=== PATIENT | male | born 1950 | race Caucasian/White ===

== ENCOUNTER → 2017-08-05 10:26 | Outpatient (CLI) | payer OTHER, SELFPAY ==
--- NOTE | 2017-08-05 | DI.CT.S_ITS ---
PROCEDURE: CT ABDOMEN PELVIS W CON INDICATIONS: Left lower quadrant abdominal and groin pain for 1 year TECHNIQUE: After the administration of intravenous contrast, 5 mm thick sections acquired from the diaphragm to the symphysis. 5 mm coronal and sagittal reformats were acquired. For radiation dose reduction, the following was used: automated exposure control, adjustment of mA and/or kV according to patient size. COMPARISON: None. FINDINGS: Image quality: Excellent. ABDOMEN: Lung bases: Lung bases are clear. Heart size is normal. Solid organs: Liver is normal in size and enhancement. In a lobulated, centrally hypodense, peripherally enhancing lesion is present within hepatic segment VIII (series 2, images 13-16). A there is likely a transient hepatic attenuation difference within hepatic segment VII and IV. Gallbladder is mildly contracted. Biliary system is non dilated. Pancreas enhances normally. Spleen is normal in size and enhancement. No adrenal nodules. Kidneys demonstrate normal size and enhancement, without hydronephrosis. Peritoneum and bowel: The stomach and small bowel demonstrate normal wall thickness and caliber. The appendix is not visualized; however surgical clips are present in the region of the cecum in the lower quadrant suggesting prior appendectomy. There is a questionable mass at the ileocecal bowel versus stool (series 2, image 55). The transverse, descending, and sigmoid colon are decompressed. Nodes and vessels: No retroperitoneal or mesenteric adenopathy by size criteria. Aorta and inferior vena cava are normal in size. There are scattered atheromatous calcifications throughout the aorta and iliac arteries bilaterally. Miscellaneous: No ventral hernias. PELVIS: Genitourinary: Bladder wall thickness is normal. Miscellaneous: No inguinal hernias or adenopathy. Bones: No suspicious bony lesions. No vertebral body compression fractures. IMPRESSION: 1. Questionable mass within the cecum versus stool. Given the lack of definite enhancement, stool is favored. However, short interval repeat study or colonoscopy is recommended to further characterize findings and exclude neoplasm. 2. Ill-defined centrally hypodense, peripherally enhancing lesion within the liver which may represent a hepatic hemangioma but is incompletely characterized. Consider right upper quadrant ultrasound or multiphase hepatic protocol CT to further characterize this finding. 3. No discrete findings within the left lower quadrant to explain patient's pain. Dictated by: Anita Clark M.D. on 08/05/2017 at 12:36 Approved by: Anita Clark M.D. on 08/05/2017 at 12:44
== END ==
PROVIDERS: Visit Provider Family Medicine
DX: R10.32 Left lower quadrant pain (principal); K76.9 Liver disease, unspecified
CPT/HCPCS: 74177; Q9967

== ENCOUNTER → 2017-08-20 10:41 | Outpatient (CLI) | payer OTHER, SELFPAY ==
--- NOTE | 2017-08-20 | DI.CT.S_ITS ---
PROCEDURE: CT ABDOMEN WO/W CON INDICATIONS: LIVER MASS, compare to prior TECHNIQUE: 4 phase scanning was performed. Non-contrast 5 mm axial sections acquired from the diaphragm to the iliac crests. Following the administration of intravenous contrast, 5 mm thick arterial-phase, portal venous-phase, and 5-minute delayed phase images were acquired through the liver. 5 mm thick coronal and sagittal reformats were performed. For radiation dose reduction, the following was used: automated exposure control, adjustment of mA and/or kV according to patient size. COMPARISON: [facility], CT, CT ABDOMEN PELVIS W CON, 08/05/2017, 11:24. FINDINGS: Image quality: Excellent. Lung bases: Lung bases are clear. Heart size is normal. Liver: Previously identified lesion in the medial dome of liver measures 1.5 x 2.2 cm with attenuation 43 on pre-contrast imaging. There is minimal early enhancement on the arterial phase with significant enhancement on venous phase, attenuation 65. Both arterial and venous phases show heterogeneous peripheral vascularity or puddling. Delayed imaging shows nearly complete enhancement with attenuation 83. These characteristics are consistent with a cavernous hemangioma. No additional liver lesions are identified. Other solid organs: Gallbladder appears normal. Biliary system is non dilated. Pancreas is normal in morphology. Spleen is normal in size and enhancement. No adrenal nodules. Both kidneys demonstrate normal size and enhancement, without hydronephrosis or nephrolithiasis. Nodes and vessels: No retroperitoneal or mesenteric adenopathy by size criteria. Aorta and inferior vena cava are normal in size. Bowel and peritoneum: Unenhanced bowel loops show mild dilatation and wall thickening in the proximal jejunum, nonspecific. The area of concern at the level of the cecum on last exam is not included in this study. No free fluid or air. Bones: No suspicious bony lesions. No vertebral body compression fractures. Miscellaneous: No ventral hernias. IMPRESSION: 1. 2 cm mass in the dome of liver is consistent with a benign cavernous hemangioma. This could be monitored by focused abdominal ultrasound as clinically indicated. Dictated by: Rakesh Castillo M.D. on 08/20/2017 at 12:36 Approved by: Rakesh Castillo M.D. on 08/20/2017 at 12:50
[2017-08-20 11:16] LABS: Alanine Aminotransferase 36 IU/L (21-72); Albumin 4.6 g/dL (3.5-5.0); Albumin Globulin Ratio 1.6 (1.0-2.8); Alkaline Phosphatase 98 U/L (38-126); Aspartate Aminotransferase 22 IU/L (17-59); Bilirubin Total 2.2 mg/dL (0.2-1.3); Blood Urea Nitrogen 26 mg/dL (9-20); Calcium 9.6 mg/dL (8.4-10.2); Carbon Dioxide 23 mmol/L (22-32); Chloride 104 mmol/L (98-107); Estimated Glomerular Filt Rate > 60.0 mL/min (>60); Globulin 2.8 g/dL (1.7-4.1); Glucose 105 mg/dL (80-110); HEMOLYSIS < 15 (0-50); Potassium 4.2 mmol/L (3.4-5.1); Sodium 137 mmol/L (137-145); Total Protein 7.4 g/dL (6.3-8.2)
== END ==
PROVIDERS: Visit Provider Family Medicine
DX: R16.0 Hepatomegaly, not elsewhere classified (principal); D18.09 Hemangioma of other sites
CPT/HCPCS: 36415; 74170; 80053; Q9967

== ENCOUNTER → 2017-09-25 10:35 | Outpatient (CLI) | payer OTHER, SELFPAY ==
--- NOTE | 2017-09-25 | DI.CT.S_ITS ---
PROCEDURE: CT ABDOMEN PELVIS WO/W CON INDICATIONS: LEFT LOWER QUADRANT PAIN TECHNIQUE: After the administration of oral contrast, 5 mm thick sections acquired from the diaphragms to the iliac crests. After the administration of intravenous contrast, 5 mm thick sections acquired from the diaphragms to the symphysis. 5 mm thick coronal and sagittal reformats were acquired. For radiation dose reduction, the following was used: automated exposure control, adjustment of mA and/or kV according to patient size. COMPARISON: [facility], CT, CT ABDOMEN WO/W CON, 08/20/2017, 11:21. [facility], CT, CT ABDOMEN PELVIS W CON, 08/05/2017, 11:24. FINDINGS: Image quality: Excellent. ABDOMEN: Lung bases: Lung bases are clear. Heart size is normal. Solid organs: Previously identified lesion in the anterior medial right hepatic lobe on series 3 axial image 39 currently measures 2.1 x 1.6 cm transaxial (previously 2.2 x 1.5 cm transaxial on 08/20/17); this lesion demonstrates peripheral contrast enhancement with central hypoattenuation. Gallbladder is unremarkable. Biliary system is non-dilated. Pancreas enhances normally. Spleen is normal in size and enhancement. No adrenal nodules. Both kidneys are normal in size. Punctate nonobstructing left nephrolith with no evidence of hydronephrosis bilaterally. Bowel and peritoneum: There is minimal colonic wall thickening of the left descending colon and sigmoid colon. No free fluid or air. Nodes and vessels: No retroperitoneal or mesenteric adenopathy by size criteria. Aorta and inferior vena are normal in caliber. There is mild calcific plaque of the abdominal aorta and branch vessels. Miscellaneous: No ventral hernias. PELVIS: Genitourinary: Bladder wall thickness is normal. Miscellaneous: Right lower quadrant anterior abdominal subcutaneous scarring. Bones: No suspicious bony lesions. No vertebral body compression fractures. IMPRESSION: #1. Minimal left descending and sigmoid colonic wall thickening, which may represent a low-grade colitis in the appropriate clinical setting. #2. Punctate nonobstructing left nephrolithiasis. #3. 2.1 cm right hepatic lesion is not significantly changed from comparison exam of 08/20/17, and likely represents an intrahepatic hemangioma. Followup imaging can be considered if there is continued clinical concern. Dictated by: Mookie Moreno M.D. on 09/25/2017 at 12:19 Approved by: Mookie Moreno M.D. on 09/25/2017 at 12:39
[2017-09-25 11:06] LABS: Alanine Aminotransferase 73 IU/L (21-72); Albumin 4.5 g/dL (3.5-5.0); Albumin Globulin Ratio 1.6 (1.0-2.8); Alkaline Phosphatase 93 U/L (38-126); Aspartate Aminotransferase 44 IU/L (17-59); Bilirubin Total 1.2 mg/dL (0.2-1.3); Blood Urea Nitrogen 32 mg/dL (9-20); Calcium 9.7 mg/dL (8.4-10.2); Carbon Dioxide 30 mmol/L (22-32); Chloride 103 mmol/L (98-107); Estimated Glomerular Filt Rate > 60.0 mL/min (>60); Globulin 2.8 g/dL (1.7-4.1); Glucose 94 mg/dL (80-110); HEMOLYSIS < 15 (0-50); Potassium 4.4 mmol/L (3.4-5.1); Sodium 141 mmol/L (137-145); Total Protein 7.3 g/dL (6.3-8.2)
== END ==
PROVIDERS: Visit Provider Family Medicine
DX: R10.32 Left lower quadrant pain (principal); N20.0 Calculus of kidney; K76.9 Liver disease, unspecified
CPT/HCPCS: 36415; 74178; 80053; Q9967

== ENCOUNTER 2017-10-01 12:55 | Day surgery (SDC) | payer OTHER, SELFPAY ==
[2017-09-30 12:41] VITALS: BMI 21.9
[2017-10-01] VITALS (9 sets, daily range): BP systolic 93–121; BP diastolic 56–75; PULSE 78–96; RESP 12–16; TEMP 36.2–36.7; O2SAT 93–99; BMI 21.9
[2017-10-01] MEDS: LACTATED RINGERS 1,000 ML 42 ML IV ×2 (13:30→16:56)
--- NOTE | 2017-10-01 15:51 | PM.PREOP ---
Pre-operative Note Interval Note Pre-op Check: Yes History & Physical Reviewed by Physician and Yes Exam Performed Changes: No
[2017-10-01] MEDS: CLINDAMYCIN 900 MG/50 ML PIGGYBACK 50 MG IV (16:03)
--- NOTE | 2017-10-01 16:26 | SUR.OPER ---
Supine on padded OR bed, head on pillow, arms secured on padded arm boards at <90 degrees abduction, legs uncrossed, safety belt at thigh, tape over blanket over lower legs.
[2017-10-01] MEDS: LIDOCAINE 1% W/EPI INJ 20 ML INJ (16:38)
[2017-10-01] MEDS: BUPIVACAINE 0.5% (PF) VIAL 30 ML INJ (17:06)
--- NOTE | 2017-10-01 17:16 | PM.OP.1 ---
Operative Date/Time/Diagnoses Date of procedure: 10/01/17 Time of procedure: 17:16 Pre-op diagnosis: Left inguinal hernia reducible without evidence of strangulation or incarceration Post-op diagnosis: same ( indirect and direct components) Procedure & Clinicians Procedure: repair with plug and patch technique Same procedure as scheduled: Yes Indications: symptomatic left inguinal hernia Surgeon: Sergo Elam Click Yes if Unassisted: Yes Anesthesia Type: General Operative Notes Findings: direct and indirect hernia Closure Type: primary Specimen(s): none sent Implants & Drains: mesh Estimated Blood Loss (mL): 5 Blood products transfused: none Procedure in detail: the patient is placed supine on the operating room table and underwent general LMA anesthesia. He was prepped and draped in the usual fashion. Local anesthetic was infiltrated and a transverse incision made overlying his internal ring. It was carried down level of the external oblique. The external oblique was opened parallel with its fibers through the external ring. Cremaster was opened proximally in an indirect sac was identified from surrounding structures. It was opened and found to contain a small amount of fat attached to intestine. I reduced this and close the defect with an interrupted 2 0 silk suture. The stump was allowed to retract and a medium plug was placed in the defect and tacked into place with interrupted 0 Tycron sutures. The cremaster was then closed with an interrupted 3 0 Polysorb and a patch placed across the floor. It was tacked at the pubic tubercle, the posterior lamella the anterior rectus sheath the ileo angle ligaments. Lateral the cord. The opening for the cord structures was enlarged to prevent constriction around the cord. The external oblique was closed with a running 3 0 Polysorb. Subcu was closed with interrupted 3 0 Polysorb and skin was closed running for 0 Polysorb subcuticular stitch and Steri-Strips. Dressing was applied the pull testicle was pulled down and the patient was awakened and taken the recovery room good condition. Complications: none Condition: stable Disposition: PACU Plan for aftercare: Follow-up in the office
[2017-10-01] MEDS: OXYCODONE/ACETAMINOPHEN 5/325 TABLET 1 TAB PO (17:51)
--- NOTE | 2017-10-01 18:13 | SUR.PHASEII ---
stable pacu stay, pt awoke, airway out. tolerated applesauce, medicated with percocet, brought in, d/c instructions discussed, all voiced an understanding. obtained pain meds from pharmacy. able to be discharged, but wants to stay till [place]. dressing has remained c/d/i. ice on and off.
--- NOTE | 2017-10-01 19:58 | SUR.PHASEII ---
late entry: ready to go, pt dressed with assist of . steady when up wheeled out by dennis [place]. pt left in stable condition.
== END 2017-10-01 18:30 | disposition home or self-care (01) ==
PROVIDERS: Visit Provider Specialist
PROC: (CPT 49505; principal; 2017-10-01 14:15)
DX: K40.90 Unilateral inguinal hernia, without obstruction or gangrene, not specified as recurrent (principal)
CPT/HCPCS: 49505; C1781; J1100; J2250; J2405; J2704; J3010

== ENCOUNTER → 2019-04-29 10:21 | Outpatient (CLI) | payer OTHER, SELFPAY ==
--- NOTE | 2019-04-29 10:30 | DI.CT.S_ITS ---
PROCEDURE: CT CHEST WO CON INDICATIONS: CHRONIC COUGH TECHNIQUE: Noncontrast 5 mm thick sections acquired from the pulmonary apices to the posterior costophrenic angles. 1 mm lung window, 5 mm thick coronal and sagittal and 7 mm axial MIP reformats were then acquired. For radiation dose reduction, the following was used: automated exposure control, adjustment of mA and/or kV according to patient size. COMPARISON: None. FINDINGS: Image quality: Excellent. Lungs and pleura: No acute air space opacities. Mild biapical scarring. 4 mm ill-defined nodular density with slightly spiculated margin is seen in anterolateral aspect of left lingula segment and just anterior to the oblique fissure series 3 image 209. Dependent atelectasis/scarring in periphery of bilateral lower lung yates are seen. No pleural effusions or pneumothorax. Central and peripheral airways are patent and normal in caliber. Mediastinum: Heart size is normal. No pericardial effusion. No mediastinal adenopathy by size criteria. Thoracic aorta and central pulmonary arteries are normal in size. Esophagus is normal in caliber. There is a small hiatal hernia. Bones and chest wall: No suspicious bony lesions. No vertebral body compression fractures. No axillary or supraclavicular adenopathy by size criteria. Thyroid gland is within normal limits. Abdomen: Visualized upper abdominal solid organs and bowel loops appear normal in the absence of contrast. IMPRESSION: 1. Ill-defined 4 mm nodular density with mildly spiculated margin in left lingula segment and near left lung base. Additional ill-defined area of scarring/atelectasis scattered in bilateral lung bases. Consider followup chest CT study in 12 months for evaluation of resolution or stability. 2. Airway is patent. No pleural effusion or pneumothorax. 3. No mediastinal or hilar lymphadenopathy. Dictated by: Desmond Thornton M.D. on 04/29/2019 at 10:47 Approved by: Desmond Thornton M.D. on 04/29/2019 at 11:11
== END ==
PROVIDERS: PCP Family Medicine; Referring Provider Family Medicine; Visit Provider Family Medicine
DX: R05 Cough (principal); R91.1 Solitary pulmonary nodule; K44.9 Diaphragmatic hernia without obstruction or gangrene
CPT/HCPCS: 71250

== ENCOUNTER 2019-07-21 18:16 | Observation (INO) | payer OTHER, SELFPAY ==
[2019-07-21 18:15] VITALS: BP 158/92; PULSE 85; RESP 14; TEMP 36.7; O2SAT 99
--- NOTE | 2019-07-21 18:22 | ED.ABDPAIN ---
HPI - Abdominal Pain General Chief Complaint: Urogenital-Male Stated Complaint: Renal colic Time Seen by Provider: 07/21/19 18:21 History of Present Illness HPI narrative: 68-year-old gentleman with acute onset of left-sided flank pain at 2:30 a.m. this afternoon he denies any fever or chills. He has chronic intermittent diarrhea that has not been worse recently. He does report some minor irritation with urinating but no outright dysuria, hematuria or urinary retention. He states the pain is severe is difficult to find a position in which he can find any sort of comfort. Denies chest pain, shortness of breath or actual abdominal pain. Related Data Home Medications Medication Instructions Recorded Confirmed No Known Home Medications 09/30/17 11/18/18 Allergies Allergy/AdvReac Type Severity Reaction Status Date / Time ibuprofen [IBUPROFEN] Allergy Unknown Verified 07/21/19 18:20 Penicillins [PENICILLINS] Allergy Unknown rash Verified 07/21/19 18:20 Review of Systems Review of Systems Narrative: Pertinent positive and negative findings as per HPI Remainder of review of systems is otherwise unremarkable for Constitutional: Fevers, chills, weakness ENT: No sore throat, neck pain, ear pain CV: Chest pain, palpitations, dyspnea on exertion Respiratory: Cough, wheeze, dyspnea MS: Muscle weakness, numbness, joint swelling or warmth Skin: Rashes, nonhealing lesions Neuro: Syncope, dizziness, tingling Patient History Medical History Gilbert's disease (Chronic) History of Clostridium difficile colitis (Resolved) History of interstitial nephritis (Resolved) Surgical History H/O external ear surgery (Resolved) History of appendectomy (Resolved) History of left inguinal hernia repair (Acute) History of right inguinal hernia repair (Resolved) Family History Father Cancer Grandfather Cancer Social History marital status: household members: spouse Smoking Status: Former smoker alcohol intake: current substance use type: does not use Smoking Status: Never smoker Substance Use Type: does not use Exam Narrative Exam Narrative: General: Healthy appearing, in moderate amount of pain. Able to give a complete and coherent history. Well-nourished well-developed HEENT: Dry mucous membranes, normal sclera with reactive pupils, Neck: No JVD, supple Respiratory: Lungs are clear to auscultation, no wheezing no rales no rhonchi. Full and symmetrical air movement Cardiac: Regular rate and rhythm no murmurs no bruits Abdomen: Soft nontender good bowel tones, left flank pain Skin: Warm and dry, no rashes Neurologic: Grossly neurologically intact with no obvious asymmetries or abnormalities Extremities: No trauma, well perfused Psych: Cooperative, appropriate insight and affect Initial Vital Signs Initial Vital Signs: Vital Signs Temperature 98.1 F 07/21/19 18:15 Pulse Rate 85 07/21/19 18:15 Respiratory Rate 14 07/21/19 18:15 Blood Pressure 158/92 H 07/21/19 18:15 Pulse Oximetry 99 07/21/19 18:15 Course Orders Ordered: ED Orders 07/21/19 18:24 CT kidney ureter bladder (KUB) Stat 07/21/19 18:35 Complete Blood Count AUTO DIFF Stat Comprehensive Metabolic Panel Stat Lipase Stat Troponin I Stat 07/21/19 20:33 Lactate (Lactic Acid) Stat 07/21/19 20:43 Blood Culture Stat 07/21/19 21:00 Urinalysis and Microscopic Stat 07/21/19 21:35 Education, smoking cessation ONGOING 07/21/19 21:40 Education, smoking cessation ONGOING 07/22/19 05:00 Basic Metabolic Panel Routine Complete Blood Count AUTO DIFF Routine Hydromorphone HCl (Dilaudid) 0.5 mg IV Q3HR PRN PRN Reason: Pain, Moderate (4-6) Last Admin: 07/22/19 00:43 Dose: 0.5 mg Documented by: JACINTO Sodium Chloride (Normal Saline 0.9%) 1,000 mls @ 150 mls/hr IV CONT JUANITA Last Infusion: 07/21/19 22:18 Dose: 150 mls/hr Documented by: Admin: 07/21/19 20:52 Dose: 150 mls/hr Documented by: W[place] Dextrose/Sodium Chloride (Dextrose 5%-0.9% Ns) 1,000 mls @ 100 mls/hr IV CONT JUANITA Last Admin: 07/21/19 23:50 Dose: 100 mls/hr Documented by: JACINTO Ceftriaxone Sodium/Dextrose (Rocephin) 1 gm in 50 mls @ 100 mls/hr IV Q24H [facility] Last Infusion: 07/22/19 00:20 Dose: 100 mls/hr Documented by: Admin: 07/21/19 23:50 Dose: 100 mls/hr Documented by: JACINTO Naloxone HCl (Narcan) 0.2 mg IV Q2MIN PRN PRN Reason: Opiate Reversal Naloxone HCl (Narcan) 0.2 mg IV Q2MIN PRN PRN Reason: Opiate Reversal Sodium Chloride (Normal Saline 0.9% Flush) 10 ml IV PRN PRN PRN Reason: Flush Discontinued Medications Sodium Chloride (Normal Saline 0.9%) 1,000 mls @ 1,000 mls/hr IV BOLUS ONE Stop: 07/21/19 19:55 Last Infusion: 07/21/19 20:37 Dose: 0 mls/hr Documented by: Admin: 07/21/19 19:33 Dose: 1,000 mls/hr Documented by: [place] Ceftriaxone Sodium/Dextrose (Rocephin) 2 gm in 50 mls @ 100 mls/hr IV NOW ONE Stop: 07/21/19 20:44 Last Infusion: 07/21/19 21:40 Dose: 0 mls/hr Documented by: Admin: 07/21/19 20:52 Dose: 100 mls/hr Documented by: [place] Ketorolac Tromethamine (Toradol) 15 mg IV NOW ONE Stop: 07/21/19 18:57 Last Admin: 07/21/19 19:32 Dose: 15 mg Documented by: W[place] Ketorolac Tromethamine (Toradol) 15 mg IV Q6HR PRN PRN Reason: Pain, Moderate (4-6) Stop: 07/23/19 21:40 Tamsulosin HCl (Flomax) 0.4 mg PO NOW ONE Stop: 07/21/19 20:26 Last Admin: 07/21/19 20:51 Dose: 0.4 mg Documented by: W[place] Vital Signs Vital signs: Vital Signs - 8 hr 07/21/19 18:15 07/21/19 18:46 Temperature 98.1 F Pulse Rate 85 64 Respiratory Rate 14 12 Blood Pressure 158/92 H Pulse Oximetry 99 86 L MDM - Abdominal Pain Medical Records Attestation: I reviewed the patient's medical records. Lab Data Attestation: I reviewed the patient's lab results. Lab results narrative: Creatinine increased to 1.29, leukocytosis with left shift Result diagrams: 07/21/19 18:35 07/21/19 18:35 Labs: Lab Results 07/21/19 07/21/19 07/21/19 Range/Units 18:35 18:35 20:33 WBC 12.4 H (4.5-11.0) X10^3/uL RBC 4.85 (4.5-5.9) X10^6/uL Hgb 15.2 (13.5-17.5) g/dL Hct 44.9 (41-53) % MCV 92.6 (80-100) fL MCH 31.4 (26-34) PG MCHC 33.9 (30-36) % RDW 13.5 (11.6-14.8) % Plt Count 170 (150-400) X10^3/uL Neut % (Auto) 90.9 H (50-75) % Lymph % (Auto) 6.4 L (25-40) % [place] % (Auto) 2.5 L (3-14) % Eos % (Auto) 0.0 L (2-4) % Baso % (Auto) 0.2 (0-2) % Neut # (Auto) 14282 H (0150-9566) /uL Lymph # (Auto) 800 L (4948-6245) /uL [place] # (Auto) 300 (0-900) /uL Eos # (Auto) 0 (0-450) /uL Baso # (Auto) 0 (0-100) /uL Sodium 136 L (137-145) mmol/L Potassium 4.2 (3.4-5.1) mmol/L Chloride 105 (98-107) mmol/L Carbon Dioxide 27 (22-32) mmol/L BUN 28 H (9-20) mg/dL Creatinine 1.29 H (0.66-1.25) mg/dL Estimated GFR 55.7 L (>60) mL/min BUN/Creatinine Ratio 21.7 (6-22) Glucose 142 H (80-110) mg/dL Lactate 1.2 (0.7-2.1) mmol/L Calcium 9.4 (8.4-10.2) mg/dL Total Bilirubin 1.1 (0.2-1.3) mg/dL AST 32 (17-59) IU/L ALT 52 H (<50) IU/L Alkaline Phosphatase 99 (38-126) U/L Troponin I < 0.012 (0.01-0.034) ng/mL Total Protein 7.2 (6.3-8.2) g/dL Albumin 4.2 (3.5-5.0) g/dL Globulin 3.0 (1.7-4.1) g/dL Albumin/Globulin Ratio 1.4 (1.0-2.8) Lipase 52 (23-300) U/L Urine Color Urine Appearance Urine pH (4.5-8.0) Ur Specific [place] (1.000-1.035) Urine Protein (Negative) Urine Glucose (UA) (Negative) g/dL Urine Ketones (NEGATIVE) Urine Occult Blood (Negative) Urine Nitrate (Negative) Urine Bilirubin (NEGATIVE) Urine Urobilinogen (0.2) E.U./dL Ur Leukocyte Esterase (NEGATIVE) Urine RBC (0-5/HPF) Urine WBC (0-5/HPF) Ur Squamous Epith Cells (0-5/HPF) Urine Bacteria (None) Ur Culture Indicated? COVID-19 PCR (Negative) 07/21/19 07/21/19 Range/Units 21:00 21:00 WBC (4.5-11.0) X10^3/uL RBC (4.5-5.9) X10^6/uL Hgb (13.5-17.5) g/dL Hct (41-53) % MCV (80-100) fL MCH (26-34) PG MCHC (30-36) % RDW (11.6-14.8) % Plt Count (150-400) X10^3/uL Neut % (Auto) (50-75) % Lymph % (Auto) (25-40) % [place] % (Auto) (3-14) % Eos % (Auto) (2-4) % Baso % (Auto) (0-2) % Neut # (Auto) (7942-2504) /uL Lymph # (Auto) (7932-5198) /uL [place] # (Auto) (0-900) /uL Eos # (Auto) (0-450) /uL Baso # (Auto) (0-100) /uL Sodium (137-145) mmol/L Potassium (3.4-5.1) mmol/L Chloride (98-107) mmol/L Carbon Dioxide (22-32) mmol/L BUN (9-20) mg/dL Creatinine (0.66-1.25) mg/dL Estimated GFR (>60) mL/min BUN/Creatinine Ratio (6-22) Glucose (80-110) mg/dL Lactate (0.7-2.1) mmol/L Calcium (8.4-10.2) mg/dL Total Bilirubin (0.2-1.3) mg/dL AST (17-59) IU/L ALT (<50) IU/L Alkaline Phosphatase (38-126) U/L Troponin I (0.01-0.034) ng/mL Total Protein (6.3-8.2) g/dL Albumin (3.5-5.0) g/dL Globulin (1.7-4.1) g/dL Albumin/Globulin Ratio (1.0-2.8) Lipase (23-300) U/L Urine Color Yellow Urine Appearance Clear Urine pH 5.0 (4.5-8.0) Ur Specific [place] 1.025 (1.000-1.035) Urine Protein Negative (Negative) Urine Glucose (UA) Negative (Negative) g/dL Urine Ketones 1+ H (NEGATIVE) Urine Occult Blood 3+ H (Negative) Urine Nitrate Negative (Negative) Urine Bilirubin Negative (NEGATIVE) Urine Urobilinogen 0.2 (0.2) E.U./dL Ur Leukocyte Esterase Negative (NEGATIVE) Urine RBC 1-5/hpf (0-5/HPF) Urine WBC 0-1/hpf (0-5/HPF) Ur Squamous Epith Cells 0-1 /hpf (0-5/HPF) Urine Bacteria None seen (None) Ur Culture Indicated? Cult not indicated COVID-19 PCR Negative (Negative) Imaging Data CT scan - abdomen/pelvis: Radiologist's Impression: IMPRESSION: 1. A 4 mm stone obstructs the distal left ureter just above the ureterovesical junction. There is mild to moderate left hydronephrosis and probable calyceal rupture with perinephric stranding and fluid. Dictated by: Carlos Trotter M.D. on 07/21/2019 at 19:02 MDM Narrative Medical decision making narrative: 68-year-old gentleman with a 4 mm distal left ureteral stone. Concern for caliceal rupture and leukocytosis with left shift. He lives on [facility] and returning home is going to be an issue this evening. Pain control continues to be a significant issue. 833pm Dr Buchanan, urology. Agrees with hospital admission. Will need to go to the OR for ureteral stenting tomorrow. Admit to the hospitalist service 9pm Dr Lee, will admit. Care reviewed. Discharge Plan Departure Patient Disposition: Admitted as Observation Clinical Impression: Calculus, ureteral, Acute renal insufficiency Leukocytosis Qualifiers: Leukocytosis type: unspecified Qualified Code(s): D72.829 - Elevated white blood cell count, unspecified Discharge Date/Time: 07/21/19 22:21 Admit Date/Time: 07/21/19 21:53 Admit Provider: Sarah Lee
--- NOTE | 2019-07-21 18:24 | DI.CT.S_ITS ---
PROCEDURE: CT KIDNEY URETER BLADDER (KUB) INDICATIONS: flank pain, ? stone TECHNIQUE: Noncontrast 5 mm thick sections acquired from the diaphragms to the symphysis. 5 mm thick coronal and sagittal reformats were then performed. For radiation dose reduction, the following was used: automated exposure control, adjustment of mA and/or kV according to patient size. COMPARISON: None. FINDINGS: Image quality: Excellent. Lung bases: Lung bases are clear. Heart size is normal. Urinary system: Right kidney: No stone or hydronephrosis or mass Right ureter: Unremarkable Left kidney: Mild to moderate hydronephrosis. Extensive perinephric stranding and fluid suggesting calyceal rupture. No left renal stone. Left ureter: Dilated to just above the level of the ureterovesical junction, where there is a 4 mm obstructing stone. Bladder: No bladder stones. No bladder wall thickening. Other solid organs: Liver is normal in size. Gallbladder is unremarkable. Pancreas is normal in contours. Spleen is normal in size. No adrenal nodules. Peritoneum and bowel: Unenhanced bowel loops demonstrate normal wall thickness and caliber. No free fluid or air. Nodes and vessels: No retroperitoneal or mesenteric adenopathy by size criteria. Aorta and inferior vena cava are normal in caliber. Abdominal wall: No ventral hernias. Pelvis: No free pelvic fluid. No inguinal hernias or adenopathy. Bones: No suspicious bony lesions. No vertebral body compression fractures. IMPRESSION: 1. A 4 mm stone obstructs the distal left ureter just above the ureterovesical junction. There is mild to moderate left hydronephrosis and probable calyceal rupture with perinephric stranding and fluid. Dictated by: Carlos Trotter M.D. on 07/21/2019 at 19:02 Approved by: Carlos Trotter M.D. on 07/21/2019 at 19:06
[2019-07-21 18:44] LABS: Add Manual Diff / Slide Review NO; Basophils Absolute Auto 0 /uL (0-100); Basophils Percent Auto 0.2 % (0-2); Eosinophils Absolute Auto 0 /uL (0-450); Hematocrit 44.9 % (41-53); Hemoglobin 15.2 g/dL (13.5-17.5); Lymphocytes Absolute Auto 800 /uL (1100-4500); Lymphocytes Percent Auto 6.4 % (25-40); Mean Corpuscular HGB Conc 33.9 % (30-36); Mean Corpuscular Hemoglobin 31.4 PG (26-34); Mean Corpuscular Volume 92.6 fL (80-100); Monocytes Absolute Auto 300 /uL (0-900); Monocytes Percent Auto 2.5 % (3-14); Neutrophils Absolute Auto 11300 /uL (1500-7000); Neutrophils Percent Auto 90.9 % (50-75); Platelet Count 170 X10^3/uL (150-400); Red Blood Cell Count 4.85 X10^6/uL (4.5-5.9); Red Cell Distribution Width 13.5 % (11.6-14.8); White Blood Cell Count 12.4 X10^3/uL (4.5-11.0)
[2019-07-21 18:46] VITALS: PULSE 64; RESP 12; O2SAT 86
[2019-07-21 18:54] LABS: Alanine Aminotransferase 52 IU/L (<50); Albumin 4.2 g/dL (3.5-5.0); Albumin Globulin Ratio 1.4 (1.0-2.8); Alkaline Phosphatase 99 U/L (38-126); Aspartate Aminotransferase 32 IU/L (17-59); BUN Creatinine Ratio 21.7 (6-22); Bilirubin Total 1.1 mg/dL (0.2-1.3); Blood Urea Nitrogen 28 mg/dL (9-20); Calcium 9.4 mg/dL (8.4-10.2); Carbon Dioxide 27 mmol/L (22-32); Chloride 105 mmol/L (98-107); Estimated Glomerular Filt Rate 55.7 mL/min (>60); Glucose 142 mg/dL (80-110); HEMOLYSIS 22 (0-50); Lipase 52 U/L (23-300); Potassium 4.2 mmol/L (3.4-5.1); Sodium 136 mmol/L (137-145); Total Protein 7.2 g/dL (6.3-8.2)
[2019-07-21 19:06] LABS: Troponin I < 0.012 ng/mL (0.01-0.034)
[2019-07-21] MEDS: KETOROLAC 60 MG/2 ML VIAL 15 MG IV (19:32)
[2019-07-21] MEDS: SODIUM CHLORIDE 0.9% 1,000 ML 1000 ML IV (19:33)
[2019-07-21] MEDS: TAMSULOSIN 0.4 MG CAPSULE PO (20:51)
[2019-07-21 20:52] LABS: Lactate (Lactic Acid) 1.2 mmol/L (0.7-2.1)
[2019-07-21] MEDS: SODIUM CHLORIDE 0.9% 1,000 ML 150 ML IV (20:52)
[2019-07-21] MEDS: CEFTRIAXONE 2 GM/50 ML FROZ.PIGGY IV (20:52)
[2019-07-21 21:12] LABS: Appearance Urine UA CLEAR; Bacteria Urine None Seen; Bilirubin Urine UA NEGATIVE (NEGATIVE); Color Urine UA YELLOW; Glucose Urine UA NEGATIVE (Negative); Ketones Urine UA 1+ (NEGATIVE); Leukocyte Esterase Urine UA NEGATIVE (NEGATIVE); Nitrite Urine UA NEGATIVE (Negative); Occult Blood Urine UA 3+ (Negative); Protein Urine UA NEGATIVE (Negative); Specific Gravity Urine UA 1.025 (1.000-1.035); Urobilinogen Urine UA 0.2 E.U./dL (0.2)
[2019-07-21 21:24] LABS: Culture Indicated Urine Cult Not Indicated; RBC Urine 1-5/HPF (0-5/HPF); Squamous Epithelial Cell Urine 0-1 /HPF (0-5/HPF); WBC Urine 0-1/HPF (0-5/HPF)
--- NOTE | 2019-07-21 21:42 | PM.HP.1 ---
History of Present Illness History of Present Illness Date Patient Seen: 07/21/19 Time Patient Seen: 21:45 Chief complaint: Renal colic Narrative: This is a 68 year old male with sudden onset 2:30 pm today of left flank pain. A CT scan reveals a 4 mm UVJ stone with calyceal rupture. He has had no prior episodes of kidney stones although about 5 years ago he had 20 minutes of severe left flank pain the resolved spontaneously. He will be observed overnight and will undergo stenting with Urology in the morning. A Urine culture will be done. The Creatinine has risen from a baseline of 1.0 up to 1.39. Patient History Medical History Gilbert's disease (Chronic) History of Clostridium difficile colitis (Resolved) History of interstitial nephritis (Resolved) Surgical History H/O external ear surgery (Resolved) History of appendectomy (Resolved) History of left inguinal hernia repair (Acute) History of right inguinal hernia repair (Resolved) Family & Social History Family History Father Cancer Grandfather Cancer Social History: household members spouse Safety & Behavioral: Feels Safe in Current Yes Environment Been Physically Hurt or No Threatened By a Person Tobacco & Substance use: Smoking Status Never smoker alcohol intake never Substance Use Type does not use Comment: His backup decision maker is his , Flores Harden. He works for a [employer]. Meds Home Medications and Allergies Home Medications Medication Instructions Recorded Confirmed Type No Known Home Medications 09/30/17 11/18/18 History Allergies Allergy/AdvReac Type Severity Reaction Status Date / Time ibuprofen [IBUPROFEN] Allergy Unknown Verified 07/21/19 18:20 Penicillins [PENICILLINS] Allergy Unknown rash Verified 07/21/19 18:20 Review of Systems Review of Systems Narrative: Positive for abdominal pain Negative for fevers, chills, sweats, nausea, vomiting, coughing, chest pain, bleeding, rash, joint pain, seizures, headaches, difficulty talking, difficulty walking, new allergies. ROS: Yes All systems reviewed with the patient and are negative except as otherwise documented Exam Vital Signs (past 8 hours): - 07/21/19 18:15 07/21/19 18:46 Temperature 98.1 F Pulse Rate 85 64 Respiratory Rate 14 12 Blood Pressure 158/92 H Pulse Oximetry 99 86 L Oxygen Delivery Method Room Air Narrative Exam Narrative: Alert and oriented x3, no apparent distress No lymph nodes felt head, neck, supraclavicular area No thyromegaly JVD is less than 6 cm No carotid bruits are heard Throat looks normal Heart is regular rate and rhythm without murmur Lungs are clear to auscultation bilaterally Abdomen is soft, bowel sounds positive, mildly tender in the left lower quadrant only, no organomegaly. Extremities have no ankle edema Skin has no rash or jaundice Neurological exam There is no tremor Cranial nerves 2-12 test intact Motor function is 5/5 throughout Objective Labs Result Diagrams: 07/21/19 18:35 07/21/19 18:35 Labs: Laboratory Results - last 24 hr 07/21/19 07/21/19 07/21/19 18:35 18:35 20:33 WBC 12.4 H RBC 4.85 Hgb 15.2 Hct 44.9 MCV 92.6 MCH 31.4 MCHC 33.9 RDW 13.5 Plt Count 170 Neut % (Auto) 90.9 H Lymph % (Auto) 6.4 L [place] % (Auto) 2.5 L Eos % (Auto) 0.0 L Baso % (Auto) 0.2 Neut # (Auto) 32455 H Lymph # (Auto) 800 L [place] # (Auto) 300 Eos # (Auto) 0 Baso # (Auto) 0 Sodium 136 L Potassium 4.2 Chloride 105 Carbon Dioxide 27 BUN 28 H Creatinine 1.29 H Estimated GFR 55.7 L BUN/Creatinine Ratio 21.7 Glucose 142 H Lactate 1.2 Calcium 9.4 Total Bilirubin 1.1 AST 32 ALT 52 H Alkaline Phosphatase 99 Troponin I < 0.012 Total Protein 7.2 Albumin 4.2 Globulin 3.0 Albumin/Globulin Ratio 1.4 Lipase 52 Urine Color Urine Appearance Urine pH Ur Specific [place] Urine Protein Urine Glucose (UA) Urine Ketones Urine Occult Blood Urine Nitrate Urine Bilirubin Urine Urobilinogen Ur Leukocyte Esterase Urine RBC Urine WBC Ur Squamous Epith Cells Urine Bacteria Ur Culture Indicated? 07/21/19 21:00 WBC RBC Hgb Hct MCV MCH MCHC RDW Plt Count Neut % (Auto) Lymph % (Auto) [place] % (Auto) Eos % (Auto) Baso % (Auto) Neut # (Auto) Lymph # (Auto) [place] # (Auto) Eos # (Auto) Baso # (Auto) Sodium Potassium Chloride Carbon Dioxide BUN Creatinine Estimated GFR BUN/Creatinine Ratio Glucose Lactate Calcium Total Bilirubin AST ALT Alkaline Phosphatase Troponin I Total Protein Albumin Globulin Albumin/Globulin Ratio Lipase Urine Color Yellow Urine Appearance Clear Urine pH 5.0 Ur Specific [place] 1.025 Urine Protein Negative Urine Glucose (UA) Negative Urine Ketones 1+ H Urine Occult Blood 3+ H Urine Nitrate Negative Urine Bilirubin Negative Urine Urobilinogen 0.2 Ur Leukocyte Esterase Negative Urine RBC 1-5/hpf Urine WBC 0-1/hpf Ur Squamous Epith Cells 0-1 /hpf Urine Bacteria None seen Ur Culture Indicated? Cult not indicated Assessment & Plan Assessment & Plan narrative: Left UVJ Stone, present on admission, acute -Calyceal rupture with [address]-KUB -Dr. Downey will consult and place a stent 07/21. -NPO after midnight -IVF and IV Dilaudid prn Acute Kidney Injury -Baseline Creatinine 1.0, up to 1.39 on 07/21 -treat with IVF and repeat 07/22.
[2019-07-21 22:10] VITALS: BMI 24.0
[2019-07-21 22:19] VITALS: BP 126/67; PULSE 80; RESP 17; O2SAT 97
[2019-07-21 22:43] LABS: COVID19 -Nasal RAPID Negative (Negative)
[2019-07-21] MEDS: CEFTRIAXONE 1 GM/50 ML FROZ.PIGGY IV (23:50)
[2019-07-21] MEDS: DEXTROSE 5%-0.9% NS 1,000 ML 100 ML IV (23:50)
[2019-07-22] VITALS (16 sets, daily range): BP systolic 91–116; BP diastolic 55–74; PULSE 59–87; RESP 8–20; TEMP 36.2–37.6; O2SAT 93–100; BMI 24.0
--- NOTE | 2019-07-22 | DI.RAD.S_ITS ---
PROCEDURE: XR ABDOMEN 1V INDICATIONS: LEFT CYSTO TECHNIQUE: One view of the abdomen acquired. COMPARISON: [facility], CT, CT KIDNEY URETER BLADDER (KUB), 07/21/2019, 18:44. FINDINGS: Surgical changes and devices: Left ureteral stent is present which demonstrates a redundant loop proximally. Bowel: Bowel gas pattern is normal. Soft tissues: No suspicious abdominal calcifications. Visualized solid organ contours appear normal in size. Bones: No suspicious bony lesions. IMPRESSION: Intraoperative images obtained during left ureteral stent placement as above. Dictated by: Joseph Rice M.D. on 07/22/2019 at 19:50 Approved by: Joseph Rice M.D. on 07/22/2019 at 19:52
[2019-07-22] MEDS: HYDROMORPHONE 1 MG INJ 0.5 MG IV ×2 (00:43→07:59)
--- NOTE | 2019-07-22 03:51 | PC.NURSE ---
Patient NPO at midnight. Pain 3/10, medicated w/ PRN 0.5 mg of dilaudid IV.
[2019-07-22 05:33] LABS: Add Manual Diff / Slide Review NO; Basophils Absolute Auto 0 /uL (0-100); Basophils Percent Auto 0.2 % (0-2); Eosinophils Absolute Auto 100 /uL (0-450); Eosinophils Percent Auto 0.8 % (2-4); Hematocrit 40.3 % (41-53); Lymphocytes Absolute Auto 1500 /uL (1100-4500); Lymphocytes Percent Auto 20.3 % (25-40); Mean Corpuscular HGB Conc 34.7 % (30-36); Mean Corpuscular Volume 92.3 fL (80-100); Monocytes Absolute Auto 600 /uL (0-900); Neutrophils Absolute Auto 5300 /uL (1500-7000); Neutrophils Percent Auto 70.7 % (50-75); Platelet Count 151 X10^3/uL (150-400); Red Blood Cell Count 4.37 X10^6/uL (4.5-5.9); Red Cell Distribution Width 13.5 % (11.6-14.8); White Blood Cell Count 7.5 X10^3/uL (4.5-11.0)
[2019-07-22 05:39] LABS: BUN Creatinine Ratio 17.3 (6-22); Blood Urea Nitrogen 27 mg/dL (9-20); Calcium 8.1 mg/dL (8.4-10.2); Carbon Dioxide 25 mmol/L (22-32); Chloride 106 mmol/L (98-107); Estimated Glomerular Filt Rate 44.8 mL/min (>60); Glucose 151 mg/dL (80-110); HEMOLYSIS < 15 (0-50); Potassium 3.9 mmol/L (3.4-5.1); Sodium 136 mmol/L (137-145)
[2019-07-22] MEDS: DEXTROSE 5%-0.9% NS 1,000 ML 100 ML IV (06:33)
[2019-07-22] MEDS: ONDANSETRON 4 MG/2 ML INJ IV (08:57)
--- NOTE | 2019-07-22 11:47 | CM.DANOTE ---
Patient is a 68 year old male who was admitted on 07/21/19 for Renal Colic. Pt has [employer] for insurance and his PCP is Dr. David Ohara. EMR was reviewd. Per MD, pt with no hx of kidney stones but scan shows stone with rupture and Dr. Downey to Consult and likely stent placed. Per RN, pt in quite a lot of pain this morning and could not sleep last night and plan for Stent placement today. SW briefly met bedside with pt during MD rounds and explained role and pt just starting to get some sleep after last night and confirms that he lives at home on [address] with his and is independent at baseline and works and drives himself and denies any equipment for ambulation or HH/SNF. Plan: SW to follow closely after stent placement to determine if pt will be safe for d/c home with spouse and any further identified discharge planning needs. JYOTHI Jones Discharge Planning/Care Management CM Discharge Assessment Start: 07/22/19 11:46 Freq: Status: Active Protocol: Document 07/22/19 11:46 BF (Rec: 07/22/19 11:47 BF [id number]) Discharge Planning Assessment Assigned Embedded Firmware Engineer JYOTHI Rao DPOA/Assigned Designee Name spouse Flores Contact Information [phone] Advance Directives? Yes Advance Directives on File No History Provided By Patient,Medical Record Has Patient been admitted in last 30 No days? Prior Living Arrangements House Household Members spouse Type of transporation used prior to Drives own vehicle admit Independent with ADL's Yes Is patient alert and oriented? Yes Caregiver for Another No Patient/Family Preference Home with Home Health Barriers to Discharge No Discharge Plan Home Transportation Arrangement Spouse available for transport at d/c Referrals Initiated None needed Additional Comment Waiting after stent to r/o HH Review Status In Process Please Provide Date Initial DC 07/22/19 Assessment Was Performed Next Review Type Continued Stay Review
[2019-07-22] MEDS: HYDROMORPHONE 1 MG INJ IV ×2 (11:51→15:35)
[2019-07-22] MEDS: LACTATED RINGERS 1,000 ML 100 ML IV (11:51)
--- NOTE | 2019-07-22 12:28 | PM.CN ---
History of Present Illness Consult details Date Patient Seen: 07/22/19 Time Patient Seen: 12:28 Chief complaint: Renal colic Reason for consult: 1. Obstructing 4 mm left ureterovesical junction calculus. Requesting provider: Josee Shin Narrative: The patient is a 68-year-old white male who is experiencing in his usual health until about 14 30 yesterday afternoon when he had acute and severe onset of left flank and abdominal pain. He reports that 4 or 5 years ago he recalls having had a very transient episode of left flank pain with spontaneous resolution, otherwise no clinical history of stone disease. CT of abdomen 09/25/2017, does demonstrate a punctate, non obstructing, left renal calculus. He was transported to [facility] Emergency Department. CT KUB 07/21/2019, had significant findings of a 4 mm obstructing left ureterovesical junction calculus, associated mild to moderate left hydronephrosis, and market left perirenal stranding and fluid, suggestive of a calyceal rupture. Baseline creatinine in 2018 was 1.0. On presentation was 1.36. Today it has risen to 1.56. This is likely due to reabsorption of extravasated urine in the retroperitoneum. Meds Home Medications and Allergies Home Medications Medication Instructions Recorded Confirmed Type No Known Home Medications 09/30/17 11/18/18 History Allergies Allergy/AdvReac Type Severity Reaction Status Date / Time ibuprofen [IBUPROFEN] Allergy Unknown Verified 07/21/19 18:20 Penicillins [PENICILLINS] Allergy Unknown rash Verified 07/21/19 18:20 Review of Systems Review of Systems ROS: Yes All systems reviewed with the patient and are negative except as otherwise documented Exam Vital Signs (past 8 hours): - 07/22/19 07:58 07/22/19 11:45 Temperature 99.0 F 98.9 F Pulse Rate 72 59 L Respiratory Rate 18 20 Blood Pressure 116/66 114/65 Pulse Oximetry 99 98 Oxygen Delivery Method Room Air Oxygen Flow Rate 0 Narrative Exam Narrative: 1. Resting comfortably in bed no acute distress currently. 2. Head and neck exam-atraumatic normocephalic, no JVD or adenopathy. 3. Chest equal clear and unlabored bilaterally. 4. Heart rate is regular. 5. Abdomen-bowel sounds are active no localizing signs, no distention. Objective Labs Result Diagrams: 07/22/19 04:45 07/22/19 04:45 Labs: Laboratory Results - last 24 hr 07/21/19 07/21/19 07/21/19 18:35 18:35 20:33 WBC 12.4 H RBC 4.85 Hgb 15.2 Hct 44.9 MCV 92.6 MCH 31.4 MCHC 33.9 RDW 13.5 Plt Count 170 Neut % (Auto) 90.9 H Lymph % (Auto) 6.4 L [place] % (Auto) 2.5 L Eos % (Auto) 0.0 L Baso % (Auto) 0.2 Neut # (Auto) 81982 H Lymph # (Auto) 800 L [place] # (Auto) 300 Eos # (Auto) 0 Baso # (Auto) 0 Sodium 136 L Potassium 4.2 Chloride 105 Carbon Dioxide 27 BUN 28 H Creatinine 1.29 H Estimated GFR 55.7 L BUN/Creatinine Ratio 21.7 Glucose 142 H Lactate 1.2 Calcium 9.4 Total Bilirubin 1.1 AST 32 ALT 52 H Alkaline Phosphatase 99 Troponin I < 0.012 Total Protein 7.2 Albumin 4.2 Globulin 3.0 Albumin/Globulin Ratio 1.4 Lipase 52 Urine Color Urine Appearance Urine pH Ur Specific [place] Urine Protein Urine Glucose (UA) Urine Ketones Urine Occult Blood Urine Nitrate Urine Bilirubin Urine Urobilinogen Ur Leukocyte Esterase Urine RBC Urine WBC Ur Squamous Epith Cells Urine Bacteria Ur Culture Indicated? COVID-19 PCR 07/21/19 07/21/19 07/22/19 21:00 21:00 04:45 WBC 7.5 RBC 4.37 L Hgb 14.0 Hct 40.3 L MCV 92.3 MCH 32.0 MCHC 34.7 RDW 13.5 Plt Count 151 Neut % (Auto) 70.7 D Lymph % (Auto) 20.3 L [place] % (Auto) 8.0 Eos % (Auto) 0.8 L Baso % (Auto) 0.2 Neut # (Auto) 5300 Lymph # (Auto) 1500 [place] # (Auto) 600 Eos # (Auto) 100 Baso # (Auto) 0 Sodium Potassium Chloride Carbon Dioxide BUN Creatinine Estimated GFR BUN/Creatinine Ratio Glucose Lactate Calcium Total Bilirubin AST ALT Alkaline Phosphatase Troponin I Total Protein Albumin Globulin Albumin/Globulin Ratio Lipase Urine Color Yellow Urine Appearance Clear Urine pH 5.0 Ur Specific [place] 1.025 Urine Protein Negative Urine Glucose (UA) Negative Urine Ketones 1+ H Urine Occult Blood 3+ H Urine Nitrate Negative Urine Bilirubin Negative Urine Urobilinogen 0.2 Ur Leukocyte Esterase Negative Urine RBC 1-5/hpf Urine WBC 0-1/hpf Ur Squamous Epith Cells 0-1 /hpf Urine Bacteria None seen Ur Culture Indicated? Cult not indicated COVID-19 PCR Negative 07/22/19 04:45 WBC RBC Hgb Hct MCV MCH MCHC RDW Plt Count Neut % (Auto) Lymph % (Auto) [place] % (Auto) Eos % (Auto) Baso % (Auto) Neut # (Auto) Lymph # (Auto) [place] # (Auto) Eos # (Auto) Baso # (Auto) Sodium 136 L Potassium 3.9 Chloride 106 Carbon Dioxide 25 BUN 27 H Creatinine 1.56 H Estimated GFR 44.8 L BUN/Creatinine Ratio 17.3 Glucose 151 H Lactate Calcium 8.1 L Total Bilirubin AST ALT Alkaline Phosphatase Troponin I Total Protein Albumin Globulin Albumin/Globulin Ratio Lipase Urine Color Urine Appearance Urine pH Ur Specific [place] Urine Protein Urine Glucose (UA) Urine Ketones Urine Occult Blood Urine Nitrate Urine Bilirubin Urine Urobilinogen Ur Leukocyte Esterase Urine RBC Urine WBC Ur Squamous Epith Cells Urine Bacteria Ur Culture Indicated? COVID-19 PCR Assessment & Plan Assessment & Plan narrative: Assessment: 1. Obstructing 4 mm left ureterovesical junction calculus. 2. Left calyceal rupture. Plan: 1. Discussion today at bedside and informed consent obtained for: 1. CYSTOSCOPY AND LEFT URETEROSCOPIC STONE EXTRACTION. 2. CYSTOSCOPY AND PLACEMENT LEFT URETERAL STENT. COVID-19 COVID-19 status: Negative Result date/Date tested (Pos, Neg/Pending): 07/21/19
[2019-07-22] MEDS: METOCLOPRAMIDE 10 MG/2 ML INJ IV (12:31)
--- NOTE | 2019-07-22 12:44 | PM.PN.1 ---
Subjective Subjective Date Patient Seen: 07/22/19 Time Patient Seen: 10:40 Interval history: This is a 68 year old male no PMH who is admitted with a 4 mm UVJ stone with calyceal rupture. He is planned for urological intervention later today as an add on case. Creatinine has risen again today to 1.56 possibly due to retroperitoneal absorption of urine. He continues to complain of intermittent left sided colicky pain which is severe. He also has signficant nausea but no emesis. UA was not reflexed to culture but called lab and it will be cultured given urologic procedure is planned. Exam Vital Signs (past 8 hours): - 07/22/19 07:58 07/22/19 11:45 Temperature 99.0 F 98.9 F Pulse Rate 72 59 L Respiratory Rate 18 20 Blood Pressure 116/66 114/65 Pulse Oximetry 99 98 Oxygen Delivery Method Room Air Oxygen Flow Rate 0 Narrative Exam Narrative: GENERAL APPEARANCE: Well developed, well nourished male occasionally grimacing due to lower quadrant pain SKIN: Inspection of the skin reveals no rashes, ulcerations or petechiae. HEENT: Normocephalic atraumatic, extraocular muscles are intact, oropharynx is clear and mucous membranes are moist, neck is supple without adenopathy NECK: Supple and symmetric. There was no thyroid enlargement, and no tenderness, or masses were felt. CHEST: Normal AP diameter and normal contour without any kyphoscoliosis. LUNGS: Auscultation of the lungs revealed no wheezes, rhonchi, or rales. CARDIOVASCULAR: There was a regular rate and rhythm without any murmurs, gallops, rubs. Peripheral pulses were 2+ and symmetric. ABDOMEN: Soft, tender more prominently in the left lower quadrant, there is also left flank tenderness. MUSCULOSKELETAL: There was no tenderness or effusions noted. Muscle strength and tone were normal. EXTREMITIES: No cyanosis, clubbing or edema. NEUROLOGIC: Alert and oriented x 3. Normal affect. Strength is +5/5 in the Upper Extremities and Lower Extremities Bilaterally. Sensation to touch was normal. Objective Labs Result Diagrams: 07/22/19 04:45 07/22/19 04:45 Labs: Laboratory Results - last 24 hr 07/21/19 07/21/19 07/21/19 18:35 18:35 20:33 WBC 12.4 H RBC 4.85 Hgb 15.2 Hct 44.9 MCV 92.6 MCH 31.4 MCHC 33.9 RDW 13.5 Plt Count 170 Neut % (Auto) 90.9 H Lymph % (Auto) 6.4 L [place] % (Auto) 2.5 L Eos % (Auto) 0.0 L Baso % (Auto) 0.2 Neut # (Auto) 81589 H Lymph # (Auto) 800 L [place] # (Auto) 300 Eos # (Auto) 0 Baso # (Auto) 0 Sodium 136 L Potassium 4.2 Chloride 105 Carbon Dioxide 27 BUN 28 H Creatinine 1.29 H Estimated GFR 55.7 L BUN/Creatinine Ratio 21.7 Glucose 142 H Lactate 1.2 Calcium 9.4 Total Bilirubin 1.1 AST 32 ALT 52 H Alkaline Phosphatase 99 Troponin I < 0.012 Total Protein 7.2 Albumin 4.2 Globulin 3.0 Albumin/Globulin Ratio 1.4 Lipase 52 Urine Color Urine Appearance Urine pH Ur Specific [place] Urine Protein Urine Glucose (UA) Urine Ketones Urine Occult Blood Urine Nitrate Urine Bilirubin Urine Urobilinogen Ur Leukocyte Esterase Urine RBC Urine WBC Ur Squamous Epith Cells Urine Bacteria Ur Culture Indicated? COVID-19 PCR 07/21/19 07/21/19 07/22/19 21:00 21:00 04:45 WBC 7.5 RBC 4.37 L Hgb 14.0 Hct 40.3 L MCV 92.3 MCH 32.0 MCHC 34.7 RDW 13.5 Plt Count 151 Neut % (Auto) 70.7 D Lymph % (Auto) 20.3 L [place] % (Auto) 8.0 Eos % (Auto) 0.8 L Baso % (Auto) 0.2 Neut # (Auto) 5300 Lymph # (Auto) 1500 [place] # (Auto) 600 Eos # (Auto) 100 Baso # (Auto) 0 Sodium Potassium Chloride Carbon Dioxide BUN Creatinine Estimated GFR BUN/Creatinine Ratio Glucose Lactate Calcium Total Bilirubin AST ALT Alkaline Phosphatase Troponin I Total Protein Albumin Globulin Albumin/Globulin Ratio Lipase Urine Color Yellow Urine Appearance Clear Urine pH 5.0 Ur Specific [place] 1.025 Urine Protein Negative Urine Glucose (UA) Negative Urine Ketones 1+ H Urine Occult Blood 3+ H Urine Nitrate Negative Urine Bilirubin Negative Urine Urobilinogen 0.2 Ur Leukocyte Esterase Negative Urine RBC 1-5/hpf Urine WBC 0-1/hpf Ur Squamous Epith Cells 0-1 /hpf Urine Bacteria None seen Ur Culture Indicated? Cult not indicated COVID-19 PCR Negative 07/22/19 04:45 WBC RBC Hgb Hct MCV MCH MCHC RDW Plt Count Neut % (Auto) Lymph % (Auto) [place] % (Auto) Eos % (Auto) Baso % (Auto) Neut # (Auto) Lymph # (Auto) [place] # (Auto) Eos # (Auto) Baso # (Auto) Sodium 136 L Potassium 3.9 Chloride 106 Carbon Dioxide 25 BUN 27 H Creatinine 1.56 H Estimated GFR 44.8 L BUN/Creatinine Ratio 17.3 Glucose 151 H Lactate Calcium 8.1 L Total Bilirubin AST ALT Alkaline Phosphatase Troponin I Total Protein Albumin Globulin Albumin/Globulin Ratio Lipase Urine Color Urine Appearance Urine pH Ur Specific [place] Urine Protein Urine Glucose (UA) Urine Ketones Urine Occult Blood Urine Nitrate Urine Bilirubin Urine Urobilinogen Ur Leukocyte Esterase Urine RBC Urine WBC Ur Squamous Epith Cells Urine Bacteria Ur Culture Indicated? COVID-19 PCR Assessment & Plan Assessment & Plan narrative: This is a 68 year old male no PMH who is admitted with a 4 mm UVJ stone with calyceal rupture. 1. Left UVJ Stone, present on admission, acute -Calyceal rupture with [address]-KUB -Dr. Downey has been consulted and plans for urological intervention later today -NPO after midnight -IVF and IV Dilaudid prn, nausea control with Zofran and Reglan 2. Acute Kidney Injury -Baseline Creatinine 1.0, increased to 1.56. Possibly due to increased reabsorption from the retroperitoneum given caliceal rupture. -treat with IVF and continue to trend -will try and hold toradol for pain control given RONALDO. Dispo: anticipate discharge in the next 24-48 hours Code: Full DVT: HSQ to start tonight. COVID-19 COVID-19 status: Negative Quality VTE Deep Vein Thrombosis/Pulmonary Embolism Present on Admission: No
--- NOTE | 2019-07-22 15:03 | PC.NURSE ---
Gu: Nausea this am, got some zofran with fair relief. Nausea and emesis returned after about 2.5 hrs and md called and order received for reglan, same effective and pt has had no further nausea. Issues with pain control, pain is colicky and comes and goes. Dilaudid 0.5 give IV w/fair relief, however pt reporting pain soon after. Md notified and dose was increased and given. Pt reports better relief of pain and has not used any since even though he knows it is available. Resting quietly in bed. Cont w/poc.
--- NOTE | 2019-07-22 17:45 | PM.PREOP ---
Pre-operative Note COVID-19 COVID-19 status: Negative Result date/Date tested (Pos, Neg/Pending): 07/21/19 Interval Note History & Physical reviewed/Exam performed by Physician: Yes Changes to H&P: No H&P completed within 30 days and has changed as indicated here:: 07/22/19
[2019-07-22] MEDS: LACTATED RINGERS 1,000 ML 42 ML IV (17:52)
[2019-07-22] MEDS: CEFAZOLIN 2 GM/100 ML FROZ.PIGGY IV ×2 (18:12→18:25)
--- NOTE | 2019-07-22 18:42 | SUR.OPER ---
Lithotomy on padded OR bed, head on pillow, arms secured on padded arm boards at <90 degrees abduction. Legs secured in padded yellow fins stirrups.
--- NOTE | 2019-07-22 19:23 | P.OP_ITS ---
Operative Date/Time/Diagnoses Date of procedure: 07/22/19 Time of procedure: 19:23 Pre-op diagnosis: 1. Obstructing 4 mm left ureterovesical junction calculus. 2. Left forniceal rupture. 3. Left perinephric urinoma. 4. Intractable left renal colic. Post-op diagnosis: same Procedure & Clinicians Procedure: 1. Cystoscopy and left ureteroscopic stone extraction. 2. Cystoscopy and placement left ureteral stent (6 Bruneian by 22-32 cm multi- length). Same procedure as scheduled: Yes Indications: 1. Obstructing 4 mm left ureterovesical junction calculus. 2. Left forniceal rupture with associated left perinephric urinoma. 3. Intractable left renal colic. Surgeon: Nam Downey Click Yes if Unassisted: Yes Anesthesia Type: General Operative Notes Findings: 1. Urethra-normal. 2. External sphincter-coapted. 3. Prostate 3.5 cm length with moderate lateral lobe hyperplasia. 4. Bladder-1+ trabeculation. Normal orifices bilaterally. Following instrumentation of the left collecting system with a 0.35 guidewire cloudy hemorrhagic E flux emanated from the left orifice. 5. A roughly spherical calculus was encountered at the left UVJ following dilation of the left UVJ. Closure Type: not applicable Specimen(s): other (Stone from left distal ureter.) Applied: other (Six Bruneian by 22-32 cm multi-length ureteral stent.) Estimated Blood Loss (mL): 0 Blood products transfused: none Tourniquet time (min): 0 Procedure in detail: The patient was positioned in supine and administered general anesthesia. The lower abdomen genitalia and groin were then prepped and draped in sterile fashion. The 22 Bruneian panendoscope was passed in lower urinary tract with the findings as described above. A 0.35 guidewire was then advanced into the left ureteral orifice and advanced retrograde in the left upper collecting system under direct and fluoroscopic guidance. A 6 cm 18 Bruneian balloon dilating catheter was then selected and this was advanced over the guidewire and positioned across the left ureterovesical junction. The balloon was inflated to 18 atmospheres and held in place for 5 minutes after which it was deflated and backloaded off the wire. The panendoscope was then backloaded off the wire. The semi rigid ureteral scope was then advanced to the lower urinary tract and then advanced into the left distal ureter with the findings as described above. A 3 Bruneian straight, 0 tip, 4 wire basket was then selected. The basket was advanced under direct visualization proximal to the stone. The basket was then opened carefully withdrawn and manipulated the stone fell into its center, and was then captured within the basket. The stone was then withdrawn without incident and submitted for crystallographic analysis. The panendoscope was then front loaded on the guidewire and advanced in lower urinary tract. A 6 Bruneian by 22-32 cm multi-length ureteral stent was then selected. The stent was advanced over the guidewire under direct and fluoroscopic guidance. A RETRIEVAL LINE WAS LEFT ATTACHED. The bladder was then drained completely and all instrumentation was removed a final time. The patient was then repositioned in supine, awakened, and transferred to a gurney in stable condition. Complications: none Post-operative Condition: stable Disposition: PACU Plan for aftercare: Admit to acute care. He is stable for discharge from a standpoint at the discretion of hospitalist service. Request office outpatient follow-up in 2-3 weeks.
[2019-07-23 00:16] VITALS: BP 107/56; PULSE 68; RESP 18; TEMP 36.7; O2SAT 96
[2019-07-23 05:09] VITALS: BP 100/61; PULSE 54; RESP 18; TEMP 36.6; O2SAT 96
[2019-07-23 07:25] VITALS: BP 101/58; PULSE 59; RESP 16; TEMP 36.6; O2SAT 97
--- NOTE | 2019-07-23 08:34 | PM.DS.1 ---
History of Present Illness History of Present Illness Chief complaint: Renal colic Narrative: This is a 68 year old male with sudden onset 2:30 pm today of left flank pain. A CT scan reveals a 4 mm UVJ stone with calyceal rupture. He has had no prior episodes of kidney stones although about 5 years ago he had 20 minutes of severe left flank pain the resolved spontaneously. He will be observed overnight and will undergo stenting with Urology in the morning. A Urine culture will be done. The Creatinine has risen from a baseline of 1.0 up to 1.39. Discharge Providers Provider Date of admission: 07/21/19 21:53 Discharge Date: 07/23/19 Primary care physician: David Ohara Consults: 07/22/19 19:50 Consult to Discharge Planning Routine Comment: Discharge provider: Jimmie Krueger MD Summary Hospital Course Hospital Course: 1. Obstructing left ureteral stone with forniceal rupture 2. Intractable left renal colic 3. Acute kidney injury Patient was admitted for pain control and urological intervention. Dr. Downey consulted for Urology. Patient had cystoscopy procedure on July 22, 2019 with placement of left ureteral stent. The following morning he is having much less pain. Vitals are stable and he is ready for discharge. He will follow-up with urology in 2-3 weeks. The stone was sent for analysis. Exam Vital Signs (past 8 hours): - 07/23/19 05:09 Temperature 97.8 F Pulse Rate 54 L Respiratory Rate 18 Blood Pressure 100/61 Pulse Oximetry 96 Oxygen Delivery Method Room Air Oxygen Flow Rate 0 Objective Labs Result Diagrams: 07/22/19 04:45 07/22/19 04:45 Discharge Plan Discharge Plan Patient Disposition: Home Discharge orders & Medications Prescriptions: Continued fluticasone propionate 50 mcg/actuation spray,suspension 1 spray INTRANASAL DAILY PRN (Reason: Allergy Symptoms) RF: 0 Follow up/Referrals: David Ohara [Primary Care Provider] - Nam Downey MD [Physician] - 2 Weeks Discharge Health Status Multidrug resistant organism: No MDRO Diet/Activity/Treatments Diet: Diet as Tolerated Discharge Data Primary Care Provider: David Ohara Attending Provider: Sarah Lee Admit Date/Time: 07/21/19 21:53 Quality VTE Deep Vein Thrombosis/Pulmonary Embolism Present on Admission: No
[2019-07-23 11:00] VITALS: BP 105/58; PULSE 64; RESP 16; TEMP 36.9; O2SAT 98
--- NOTE | 2019-07-23 12:46 | PC.NURSE ---
Day shift: Paperwork signed and all questions answered. Pt has all personal belongings. No new MD scrips. Pt will call Thursday to make f/u appointment. Taken to car in . Car driven by his spouse. They will take ferry back to [facility]. He has boarding pass. Small amounts of blood from tip of penis when Pt urinates but then the urine runs clear.
--- NOTE | 2019-07-23 13:03 | PC.NURSE ---
Day shift: Taken in WC by this press writer at approx 1300 to car driven by his spouse.
--- NOTE | 2019-07-23 13:03 | CM.DPC ---
DCP Discharge Home Per MD, pt is medically stable after Urologist completed stent procedure yesterday and he is stable for discharge home with spouse today. Per RN, pt's spouse to arrive around lunchtime to provide transport back to [facility] [place] [id number]. No concerns at this time. Plan: Patient to d/c home today via spouse POV back to [facility] and outpt follow up. No SW needs at this time. JYOTHI Jones
[2019-08-04 10:39] LABS: Size 3X2; Stone Analysis Source LEFT URETER
[2019-08-04 10:40] LABS: Ca oxalate monohydr 100
== END 2019-07-23 13:03 | disposition home or self-care (01) ==
LOC: ED 20:36 → AC 21:54
PROVIDERS: Specialist; Admitting Provider Family Medicine; Emergency Provider Emergency Medicine; PCP Family Medicine; Referring Provider Emergency Medicine; Visit Provider Family Medicine
PROC: (CPT 52352; principal; 2019-07-22 18:15)
DX: N20.1 Calculus of ureter (principal); R10.9 Unspecified abdominal pain; D72.829 Elevated white blood cell count, unspecified; N40.0 Benign prostatic hyperplasia without lower urinary tract symptoms; N36.8 Other specified disorders of urethra; E80.4 Gilbert syndrome; Z11.59 Encounter for screening for other viral diseases
CPT/HCPCS: 52352; 52332; 36415; 74018; 74176; 76000; 80048; 80053; 81001; 82365; 82962; 83605; 83690; 84484; 85025; 87040; 87086; 87635; 94762; 96361; 96365; 96366; 96375; 96376; 99284; G0378; J0690; J0696; J1100; J1170; J1885; J2405; J2704; J2765; J3010

== ENCOUNTER → 2021-10-28 09:37 | Outpatient (CLI) | payer MEDICARE, SELFPAY ==
[2021-10-18 08:23] VITALS: BMI 24.0
[2021-10-28 19:19] LABS: Add Manual Diff / Slide Review NO; Basophils Absolute Auto 0 /uL (0-100); Basophils Percent Auto 0.7 % (0-2); Eosinophils Absolute Auto 200 /uL (0-450); Eosinophils Percent Auto 3.9 % (2-4); Hematocrit 46.8 % (41-53); Hemoglobin 15.7 g/dL (13.5-17.5); Lymphocytes Absolute Auto 1800 /uL (1100-4500); Lymphocytes Percent Auto 34.6 % (25-40); Mean Corpuscular HGB Conc 33.5 % (30-36); Mean Corpuscular Hemoglobin 30.6 PG (26-34); Mean Corpuscular Volume 91.3 fL (80-100); Monocytes Absolute Auto 500 /uL (0-900); Monocytes Percent Auto 9.1 % (3-14); Neutrophils Absolute Auto 2700 /uL (1500-7000); Neutrophils Percent Auto 51.7 % (50-75); Platelet Count 205 X10^3/uL (150-400); Red Blood Cell Count 5.12 X10^6/uL (4.5-5.9); Red Cell Distribution Width 13.3 % (11.6-14.8); White Blood Cell Count 5.1 X10^3/uL (4.5-11.0)
[2021-10-28 19:28] LABS: Alanine Aminotransferase 40 IU/L (<50); Albumin 4.4 g/dL (3.5-5.0); Albumin Globulin Ratio 1.5 (1.0-2.8); Alkaline Phosphatase 102 U/L (38-126); Aspartate Aminotransferase 29 IU/L (17-59); BUN Creatinine Ratio 25.2 (6-22); Bilirubin Total 1.8 mg/dL (0.2-1.3); Blood Urea Nitrogen 26 mg/dL (9-20); Calcium 9.2 mg/dL (8.4-10.2); Carbon Dioxide 28 mmol/L (22-32); Chloride 103 mmol/L (98-107); Cholesterol 276 mg/dL (140-199); Estimated Glomerular Filt Rate > 60 mL/min (>60); Glucose 112 mg/dL (80-110); HDL Cholesterol 103 mg/dL (40-60); HEMOLYSIS < 15 (0-50); LDL Cholesterol Calculated 157 mg/dL (<100); Potassium 4.6 mmol/L (3.4-5.1); Sodium 139 mmol/L (137-145); Total Protein 7.4 g/dL (6.3-8.2); Triglycerides 78 mg/dL (35-150)
[2021-10-28 19:58] LABS: Prostate Specific Antigen 0.913 ng/mL (0.10-4.00)
[2021-10-28 20:22] LABS: Hep C Virus Ab w/Reflex Quant NEGATIVE s/c (NEGATIVE)
== END ==
PROVIDERS: PCP Physician Assistant Medical; Visit Provider Physician Assistant Medical
DX: R16.0 Hepatomegaly, not elsewhere classified (principal); Z12.5 Encounter for screening for malignant neoplasm of prostate; N28.9 Disorder of kidney and ureter, unspecified; Z00.00 Encounter for general adult medical examination without abnormal findings
CPT/HCPCS: 80053; 80061; 84153; 85025; 86803

== ENCOUNTER → 2021-10-30 13:47 | Outpatient (CLI) | payer MEDICARE, SELFPAY ==
[2021-10-18 08:23] VITALS: BMI 24.0
[2021-11-01 14:58] LABS: Fecal Immunochemical Test Negative (Negative)
== END ==
PROVIDERS: PCP Physician Assistant Medical; Visit Provider Physician Assistant Medical
DX: Z00.00 Encounter for general adult medical examination without abnormal findings (principal)
CPT/HCPCS: 82274

== ENCOUNTER → 2023-01-29 10:20 | Outpatient (CLI) | payer MEDICARE, SELFPAY ==
[2021-10-18 08:23] VITALS: BMI 24.0
[2023-01-29 20:47] LABS: Alanine Aminotransferase 36 IU/L (<50); Albumin 4.3 g/dL (3.5-5.0); Albumin Globulin Ratio 1.5 (1.0-2.8); Alkaline Phosphatase 97 U/L (38-126); Aspartate Aminotransferase 31 IU/L (17-59); BUN Creatinine Ratio 22.6 (6-22); Bilirubin Total 1.5 mg/dL (0.2-1.3); Blood Urea Nitrogen 19 mg/dL (9-20); Calcium 9.5 mg/dL (8.4-10.2); Carbon Dioxide 25 mmol/L (22-32); Chloride 104 mmol/L (98-107); Cholesterol 273 mg/dL (140-199); Estimated Glomerular Filt Rate > 60 mL/min (>60); Globulin 2.8 g/dL (1.7-4.1); Glucose 115 mg/dL (80-110); HDL Cholesterol 107 mg/dL (40-60); HEMOLYSIS 26 (0-50); LDL Cholesterol Calculated 143 mg/dL (<100); Potassium 4.1 mmol/L (3.4-5.1); Sodium 137 mmol/L (137-145); Total Protein 7.1 g/dL (6.3-8.2); Triglycerides 116 mg/dL (35-150)
[2023-01-29 21:02] LABS: Hemoglobin A1C% w Est Avg Glu 5.9 % (4.0-6.0)
== END ==
PROVIDERS: PCP Physician Assistant Medical; Visit Provider Physician Assistant Medical
DX: R94.4 Abnormal results of kidney function studies (principal); E78.5 Hyperlipidemia, unspecified; R73.9 Hyperglycemia, unspecified
CPT/HCPCS: 80053; 80061; 83036

== ENCOUNTER → 2023-12-01 13:02 | Outpatient (CLI) | payer MEDICARE, SELFPAY ==
[2021-10-18 08:23] VITALS: BMI 24.0
[2023-12-01 19:04] LABS: Add Manual Diff / Slide Review NO; Basophils Absolute Auto 0 /uL (0-100); Basophils Percent Auto 0.3 % (0-2); Eosinophils Absolute Auto 100 /uL (0-450); Eosinophils Percent Auto 2.3 % (2-4); Hematocrit 44.1 % (41-53); Lymphocytes Absolute Auto 1700 /uL (1100-4500); Lymphocytes Percent Auto 29.7 % (25-40); Mean Corpuscular Hemoglobin 31.7 PG (26-34); Mean Corpuscular Volume 93.1 fL (80-100); Monocytes Absolute Auto 500 /uL (0-900); Monocytes Percent Auto 8.2 % (3-14); Neutrophils Absolute Auto 3400 /uL (1500-7000); Neutrophils Percent Auto 59.5 % (50-75); Platelet Count 208 X10^3/uL (150-400); Red Blood Cell Count 4.74 X10^6/uL (4.5-5.9); Red Cell Distribution Width 13.8 % (11.6-14.8); White Blood Cell Count 5.8 X10^3/uL (4.5-11.0)
[2023-12-01 19:14] LABS: Alanine Aminotransferase 67 IU/L (<50); Albumin 3.9 g/dL (3.5-5.0); Albumin Globulin Ratio 1.4 (1.0-2.8); Alkaline Phosphatase 124 U/L (38-126); Aspartate Aminotransferase 42 IU/L (17-59); Bilirubin Total 0.9 mg/dL (0.2-1.3); Blood Urea Nitrogen 29 mg/dL (9-20); Calcium 9.5 mg/dL (8.4-10.2); Carbon Dioxide 26 mmol/L (22-32); Chloride 103 mmol/L (98-107); Estimated Glomerular Filt Rate > 60 mL/min (>60); Globulin 2.8 g/dL (1.7-4.1); Glucose 110 mg/dL (80-110); HEMOLYSIS 16 (0-50); Potassium 4.5 mmol/L (3.4-5.1); Sodium 135 mmol/L (137-145); Total Protein 6.7 g/dL (6.3-8.2)
[2023-12-01 19:33] LABS: Erythrocyte Sedimentation Rate 4 MM/HR (0-15)
[2023-12-01 19:41] LABS: TSH w/ Reflex to FT4 2.17 uIU/mL (0.47-4.68)
== END ==
PROVIDERS: PCP Physician Assistant Medical; Visit Provider Family Medicine
DX: R63.4 Abnormal weight loss (principal); Z87.891 Personal history of nicotine dependence; R53.83 Other fatigue; R05.3 Chronic cough; R91.1 Solitary pulmonary nodule
CPT/HCPCS: 80053; 84443; 85025; 85651

== ENCOUNTER → 2023-12-09 11:26 | Outpatient (CLI) | payer MEDICARE, SELFPAY ==
[2021-10-18 08:23] VITALS: BMI 24.0
--- NOTE | 2023-12-09 11:28 | DI.CT.S_ITS ---
PROCEDURE: CT CHEST WO CON INDICATIONS: pulmonary node follow up TECHNIQUE: Noncontrast 5 mm thick sections acquired from the pulmonary apices to the posterior costophrenic angles. 1 mm lung window, 5 mm thick coronal and sagittal and 7 mm axial MIP reformats were then acquired. For radiation dose reduction, the following was used: automated exposure control, adjustment of mA and/or kV according to patient size. COMPARISON: [facility], CT, CT CHEST WO CON, 04/29/2019, 10:23. FINDINGS: Image quality: Diagnostic. Lower Neck: No enlarged lymph nodes. Thyroid: No thyroid nodules which require sonographic follow up, per consensus guidelines. Axillae: No enlarged lymph nodes. Chest Wall: Gynecomastia. Bones: Unremarkable. Lungs and Pleura: No pneumothorax or pleural effusions. The 4 millimeter region in the lingula has a platelike appearance on today's exam, consistent with a pleural parenchymal band (series 5, image 27). Heart: Heart size is normal. No pericardial effusion. Thoracic Vessels: Ascending aortic aneurysm measuring 4.1 centimeter, mild. Mediastinum and Noreen: No enlarged lymph nodes. Esophagus: No wall thickening. No hiatal hernia. Upper Abdomen: Visualized upper abdomen solid organs and bowel loops appear normal. IMPRESSION: Decreased conspicuity of the lesion in the lingula, now lenticular and consistent with a pleural parenchymal band. Mild ascending aortic aneurysm measuring 4.1 centimeter, stable from prior. Consider yearly follow-up. Dictated by: Kamran Wang M.D. on 12/09/2023 at 13:53 Approved by: Kamran Wang M.D. on 12/09/2023 at 14:03
== END ==
PROVIDERS: PCP Physician Assistant Medical; Referring Provider Family Medicine; Visit Provider Family Medicine
DX: I71.21 Aneurysm of the ascending aorta, without rupture (principal); R91.1 Solitary pulmonary nodule
CPT/HCPCS: 71250

== ENCOUNTER → 2023-12-24 11:28 | Outpatient (CLI) | payer MEDICARE, SELFPAY ==
[2021-10-18 08:23] VITALS: BMI 24.0
[2023-12-24 19:46] LABS: C-Reactive Protein Quant < 0.5 mg/dL (<1.0)
[2023-12-24 20:15] LABS: Hepatitis B Surface Antigen NEGATIVE s/c (NEGATIVE)
[2023-12-24 20:36] LABS: HIV 1 & 2 Ab/Ag 4th Gen Combo NEGATIVE (NEGATIVE); Hep C Virus Ab w/Reflex Quant NEGATIVE s/c (NEGATIVE)
[2023-12-24 20:37] LABS: Erythrocyte Sedimentation Rate 2 MM/HR (0-15)
== END ==
PROVIDERS: PCP Physician Assistant Medical; Visit Provider Family Medicine
DX: R06.09 Other forms of dyspnea (principal); R05.9 Cough, unspecified; R53.83 Other fatigue; R79.89 Other specified abnormal findings of blood chemistry; R05.3 Chronic cough; R63.4 Abnormal weight loss; E78.2 Mixed hyperlipidemia
CPT/HCPCS: 85651; 86038; 86140; 86803; 87340; 87389

== ENCOUNTER → 2023-12-31 09:22 | Outpatient (CLI) | payer MEDICARE, SELFPAY ==
[2021-10-18 08:23] VITALS: BMI 24.0
[2023-12-31 19:44] LABS: Cortisol AM (Before 10AM) 10.3 ug/dL (4.46-22.7)
== END ==
PROVIDERS: PCP Physician Assistant Medical; Visit Provider Family Medicine
DX: R06.09 Other forms of dyspnea (principal); R05.9 Cough, unspecified; R53.83 Other fatigue; R63.4 Abnormal weight loss
CPT/HCPCS: 82533

== ENCOUNTER → 2024-01-20 | Outpatient (CLI) | payer MEDICARE, SELFPAY ==
[2021-10-18 08:23] VITALS: BMI 24.0
--- NOTE | 2024-01-20 17:08 | DI.NM.S_ITS ---
DATE OF SERVICE: 01/20/2024 PROCEDURE: Exercise perfusion study. INDICATIONS: Chest pain, shortness of breath. CARDIAC STRESS: The patient walked on Tanner protocol for 5 minutes and 49 seconds, achieved maximum heart rate of 132 which was 89% of target heart rate. Normal blood pressure response. Resting blood pressure 104/68 and peak blood pressure 138/72 mmHg. 7 METs of workload. KENNETH positive 11%. Baseline rhythm sinus. During stress, no convincing ischemic changes seen. No significant arrhythmias. The patient had shortness of breath. Also had baseline mild atypical chest discomfort, which did not get worse during exercise. RAW DATA: There is increased subdiaphragmatic activity. GATED STUDY: Resting LV ejection fraction 70% and stress LV ejection fraction 79% without any obvious wall motion abnormalities. Resting end- diastolic volume 69 mL. TID ratio 0.84, which is within normal limits. Lung/heart ratio 0.44, which is within normal limits. MYOCARDIAL PERFUSION SCAN: Stress supine, resting supine and stress prone images were compared to each other. Stress supine and resting supine images revealed small size, mildly decreased perfusion of basal inferior wall, which got completely resolved during stress prone images, suggestive of diaphragmatic tissue attenuation artifact. Stress prone images revealed normal myocardial perfusion. CONCLUSION: I will call this study a normal myocardial perfusion study with evidence of diaphragmatic tissue attenuation artifact, which got resolved during stress prone images. Diminished exercise tolerance. Normal hemodynamic response. Atypical chest discomfort. No ischemic EKG changes. No significant arrhythmias. Preserved LV function. Overall, low-risk exercise perfusion study. Sanya Harden - CRISTINA/bao/LEIDY doc#: [id number]/job#: [id number] dd: 01/20/2024 16:24:00 dt: 01/20/2024 16:46:00 DICTATING MD/COPIES TO: Laina Bradshaw MD COPIES MNE: KATIE;
== END ==
LOC: NUCM 09:30
PROVIDERS: PCP Physician Assistant Medical; Referring Provider Family Medicine; Visit Provider Family Medicine
DX: R07.89 Other chest pain (principal); R06.09 Other forms of dyspnea; R79.89 Other specified abnormal findings of blood chemistry; R05.2 Subacute cough; R53.83 Other fatigue; R63.4 Abnormal weight loss
CPT/HCPCS: 78452; 93017; A9502